=== PATIENT | female | born 1955 | race Caucasian/White ===

== ENCOUNTER 2025-04-01 14:45 | Outpatient (REF) | payer MEDICARE, SELFPAY ==
--- NOTE | ~2025-04-01 | XR_ITS ---
EXAMINATION: XR WRIST, LEFT CLINICAL INFORMATION: Left wrist pain, deformity. S/P fall. COMPARISON: None available. TECHNIQUE: PA, lateral, and oblique views of the left wrist. FINDINGS: There is a transverse fracture across the distal radius extending into the articular surface. There is impaction of the fracture with a 2 mm step-off at the articular surface. There is loss of height across the radial styloid which is proximally displaced. Fracture also extends into the distal radioulnar joint. There is nondisplaced fracture across the base of the ulnar styloid. There is ulnar plus variance measuring +3 mm secondary to trauma. There is moderate degenerative changes in the first carpal metacarpal joint with sclerosis, joint space narrowing, and osteophytes. XR/XR wrist LT min 3V IMPRESSION: Impacted intra-articular fracture involving the distal radius. Nondisplaced fracture across the base of ulnar styloid. Moderate first CMC joint osteoarthritis. Electronically signed by: Marcos Cavanaugh MD 04/01/2025 03:24 PM EDT
== END 2025-04-01 14:46 | disposition home or self-care (01) ==
LOC: HO.HMGCLDS 14:45
PROVIDERS: PCP Pediatrics; Visit Provider Nurse Practitioner Family
DX: S52.572A Other intraarticular fracture of lower end of left radius, initial encounter for closed fracture (principal); S52.615A Nondisplaced fracture of left ulna styloid process, initial encounter for closed fracture; W01.0XXA Fall on same level from slipping, tripping and stumbling without subsequent striking against object, initial encounter; Y93.01 Activity, walking, marching and hiking
CPT/HCPCS: 73110; 99202

== ENCOUNTER 2025-04-01 14:45 | Outpatient (AMB) | payer MEDICARE, SELFPAY ==
[2025-04-01 14:49] VITALS: BP 110/70; PULSE 59; RESP 16; TEMP 36.5; O2SAT 100
--- NOTE | 2025-04-01 14:49 | AM.OFFWIN_ITS ---
Intake Vital Signs 3 04/01/25 14:49 Height 5 ft 5.5 in Weight 122 lb BMI 20.0 BP 110/70 Blood Pressure Location Rt brachial Position Sitting Respiration 16 Pulse 59 Pulse Source Pulse Oximeter Temp 97.7 F Temp Source Oral Pulse Oximetry (%) 100 Oxygen Delivery Method Room Air Intake Visit Reasons: [employer]-lt hand swollen from a fall Intake Note: Pt is here today took a fall today landed on Lt hand while walking she tripped Allergies No Known Allergies Allergy (Verified 04/01/25 14:49) Do you need a note to return to daycare/school/sports/work: No HPI HPI Comments 2 History of Present Illness0 Details 69 y/o Female patient who presents to [facility] walk in clinic with c/o Left hand/wrist pain and swelling since this Afternoon. Pt reports that she was walking around the [employer] - she tripped on something and fell down landing on her left hand/wrist. She immediately applied Ice with some relief. Pain with ROM; Bending wrist, supination and Pronation. She is able to make a fist and Normal ROM fingers. [facility] Medical History (Updated 04/01/25 @ 15:02 by Polina Driscoll NP) Swelling of left hand Review of Systems Const All systems reviewed & are unremarkable except as noted in HPI and below Physical Exam Vital Signs: Last Vital Signs Temp 97.7 F 04/01/25 14:49 Pulse 59 04/01/25 14:49 Resp 16 04/01/25 14:49 BP 110/70 04/01/25 14:49 Pulse Ox 100 04/01/25 14:49 Oxygen Delivery Method Room Air 04/01/25 14:49 BMI result Body Mass Index 20.0 Const General: no acute distress; No comfortable Nutritional Appearance: thin Orientation/consciousness: patient oriented x3 Neuro General: patient oriented x3 and gait normal Extrem Other: Left upper extremity: wrist and hand Details: normal capillary refill, tenderness Location: of the dorsal hand Location: over the radial aspect, normal ROM of fingers and swelling Psych Speech and movement: Normal speech and movement present Assessment & Plan Assessment & Plan (1) Swelling of left hand: Code(s): M79.89 - Other specified soft tissue disorders Plan: STAT Xray Hand was done - Impacted intra-articular fracture involving the distal radius. Nondisplaced fracture across the base of ulnar styloid. Moderate first CMC joint osteoarthritis. I was able to communicate with Dr. Barreto via [place], discussing the Case. She recommended Casting and Pain medications. She will need surgery in the near future. Advised Pt to go to ED for proper Casting and strong Pain medications. Pt agreed with the plan. Coding Level of Care Code New Pt Level 5 (97213) Diagnoses Swelling of left hand M79.89 Time Spent (min) 30
== END 2025-04-01 16:03 | disposition home or self-care (01) ==
PROVIDERS: PCP Pediatrics; Visit Provider Nurse Practitioner Family
DX: M79.89 Other specified soft tissue disorders (principal)

== ENCOUNTER → 2025-04-01 15:09 | Outpatient (BNV) | payer MEDICARE, SELFPAY | PROVIDERS: PCP Pediatrics; Visit Provider Radiology Diagnostic Radiology | DX: S52.572D Other intraarticular fracture of lower end of left radius, subsequent encounter for closed fracture with routine healing (principal); S52.615A Nondisplaced fracture of left ulna styloid process, initial encounter for closed fracture; M19.042 Primary osteoarthritis, left hand; W19.XXXA Unspecified fall, initial encounter | CPT/HCPCS: 73110 ==